=== PATIENT | male | born 1970 | race Caucasian/White ===

== ENCOUNTER 2024-02-12 06:25 | Day surgery (SDC) | payer BC, SELFPAY ==
[2024-02-12] VITALS (9 sets, daily range): BP systolic 106–131; BP diastolic 67–97; PULSE 59–71; RESP 16; TEMP 36.1–36.5; O2SAT 97–99; BMI 34.8
--- OUTSIDE RECORDS SUMMARY | 2024-02-12 06:42 | XMS RPT_ITS | CCD ---
Author Organization [facility] Care Team Providers Care Tax Audit Manager Name Role Phone DOUG SCHMITZ Admitting Unavailable DOUG SCHMITZ Attending Unavailable DOUG SCHMITZ Primary Care Unavailable DOUG SCHMITZ Admitting Unavailable DOUG SCHMITZ Attending Unavailable DOUG SCHMITZ Primary Care Unavailable Doug Schmitz MD Unavailable [facility] Unavailable [phone] Jamilah GREENE, Dr. Pate Unavailable Stacey SUPERVISOR CAPACITOR PROCESSING, Sherrie Unavailable Mane DYER, Machelle De Guzman Unavailable Damaris Mccormack MA Unavailable Unavailable Hitesh ADANN, Melvi Unavailable Unavailable Prosper DYER, Irais J Unavailable Esperanza MCBRIDE, Sulema Unavailable Unavailable Jodi GREENE, Mazin Daniels Unavailable [phone] Ritchie ADANN, Kenia Unavailable Unavailabl e Eun ADANN, Lacie Mcfarland Unavailable Unavaila ble Unavailable Unavailable Kamron ADANN, Efren Unavailable Unavailable [facility] Unavailable Medications Completed/Discontinued Medications Medication Drug Class(es) Dates Sig (Normalized) Sig (Original) amoxicillin 500 mg oral tablet (7 sources) Penicillin-class Antibacterial Start: 03-07-2022 End: 03-17-2022 take 1 tablet by mouth three times daily Amoxicillin 500 MG Oral Tablet ; 1 (one) Tablet tid for 10 days Quantity: 30 {Tablet} Refills: 0 Ordered: 07-Mar-2022 MD Doug Schmitz Start: 07-Mar-2022 End: 17-Mar-2022 Status: Inactive Azithromycin (7 sources) Macrolide Antimicrobial Start: 05-22-2023 End: 12-26-2023 Zithromax Z-Javier 250 mg tablet ; 2 (two) Tabs day one, then one daily for 4 days for 0 days Quantity: 1 {Packet} Refills: 0 Ordered: 26-Dec-2023 KamronTK Efren Start: 22-May-2023 End: 26-Dec-2023 Status: Inactive Start: 05-22-2023 End: 12-26-2023 Zithromax Z-Javier 250 mg table t ; 2 (two) Tabs day one, then one daily for 4 days for 0 days Quantity: 1 {Packet} Refills: 0 Ordered: 26-Dec-2023 Start: 22-May-2023 End: 26-Dec-2023 Status: Inactive Start: 05-22-2023 Zithromax Z-Pa k 250 mg tablet ; 2 (two) Tabs day one, then one daily for 4 days for 0 days Quantity: 1 {Packet} Refills: 0 Ordered: 22-May-2023 GOMEZ Gilliam Start: 22-May-2023 cephalexin 500 mg oral capsule (7 sources) Cephalosporin Antibacterial Start: 12-12-2016 End: 12-22-2016 take 1 capsule by mouth three times daily Cephalexin 500 MG Oral Capsule ; 1 Capsule three times daily for 10 days Quantity: 30 {Capsule} Refills: 0 Ordered: 05-Jan-2017 MD Doug Schmitz Start: 12-Dec-2016 End: 22-Dec-2016 Status: Inactive ibuprofen 600 mg oral tablet (7 sources) Nonsteroidal Anti-inflammatory Drug Start: 01-05-2017 End: 01-24-2019 take 1 tablet by mouth three times daily Ibuprofen 600 MG Oral Tablet ; 1 (one) Tablet tid for 0 days Quantity: 60 {Tablet} Refills: 0 Ordered: 24-Jan-2019 Start: 05-Jan-2017 End: 24-Jan-2019 Status: Inactive levoFLOXacin 500 mg oral tablet (7 sources) Quinolone Antimicrobial Start: 01-05-2017 End: 01-15-2017 take 1 tablet by mouth once daily Levaquin 500 MG Oral Tablet ; 1 Tab Daily for 10 days Quantity: 10 {Tablet} Refills: 0 Ordered: 01-Aug-2017 MD Doug Schmitz Start: 05-Jan-2017 End: 15-Jan-2017 Status: Inactive oxyCODONE hydrochloride 5 mg oral tablet (7 sources) Opioid Agonist Start: 08-06-2020 End: 01-05-2021 take 4 tablets by mouth every twenty-four hours as needed oxyCODONE HCl 5 MG Oral Tablet ; 1 (one) Tablet every four to six hours as needed for pain for 2 days Quantity: 6 {Tablet} Refills: 0 Ordered: 05-Jan-2021 TK Proctor Start: 06-Aug-2020 End: 05-Jan-2021 Status: Inactive Comments: Medication taken as needed. max 4 in 24 hr Comment on above: Medication taken as needed. max 4 in 24 hr triazolam 0.25 mg oral tablet (7 sources) Benzodiazepine Start: 06-02-2020 End: 01-05-2021 Triazolam 0.25 MG Oral Tablet ; 3 (three) Tablet 90 min pre-op for 0 days Quantity: 3 {Tablet} Refills: 0 Ordered: 05-Jan-2021 TK Proctor Start: 02-Jun-2020 End: 05-Jan-2021 Status: Inactive Problems Active Problems Problem Classification Problem Date Documented Da te Episodic/Chronic Abdominal hernia (14 sources) Umbilical hernia; Translations: [Umbilical hernia without obstruction or gangrene] 03-09-2014 Episodic Chronic obstructive pulmonary disease and bronchiectasis (14 sources) Bronchitis; Translations: [Bronchitis, not specified as acute or chronic] 01-05-2017 Episodic Contraceptive and procreative management (20 sources) Contraception status; Translations: [Encounter for sterilization] 05-22-2023 Episodic Other circulatory disease (20 sources) Elevated blood pressure; Translations: [Elevated blood-pressure reading, without diagnosis of hypertension] 08-03-2021 Episodic Other eye disorders (7 sources) Inflammatory disorder of the eye; Translations: [Other specified disorders of eye and adnexa] 01-24-2019 Episodic Other gastrointestinal disorders (4 sources) Stool DNA-based colorectal cancer screening positive; Translations: [Other fecal abnormalities] 01-25-2024 Episodic Other lower respiratory disease (2 sources) Apnea, not elsewhere classified; Translations: [Apnea, not elsewhere classified] Onset: 04-05-2021 Episodic Other lower respiratory disease (14 sources) Apnea; Translations: [Apnea, not elsewhere classified] 05-22-2023 Episodic Other screening for suspected conditions (not mental disorders or infectious disease) (12 sources) Patient encounter status; Translations: [Encounter for screening for malignant neoplasm of colon] 12-26-2023 Episodic Other upper respiratory infections (20 sources) Upper respiratory infection; Translations: [Acute upper respiratory infection, unspecified] 05-22-2023 Episodic Residual codes; unclassified (1 source) Obstructive sleep apnea (adult) (pediatric); Translations: [Obstructive sleep apnea (adult) (pediatric)] Onset: 04-05-2021 Chronic Residual codes; unclassified (20 sources) Obstructive sleep apnea syndrome; Translations: [Obstructive sleep apnea (adult) (pediatric)] 05-22-2023 Chronic Residual codes; unclassified (7 sources) Non-smoker; Translations: [Other specified health status] 05-22-2023 Episodic Residual codes; unclassified (14 sources) Insomnia; Translations: [Insomnia, unspecified] 08-11-2011 Episodic Unclassified (6 sources) Follow up for chronic condition - The patient is here for follow-up of hypertension. The patient has an active lifestyle but no regular exercise program. The patient's out of office blood pressure checks occur rarely. The patient states that headaches are rarely noted. Note for Chronic condition follow-up : reviewed by [facility] 12-26-2023 Viral infection (7 sources) Unspecified viral infection 04-11-2012 Episodic Past or Other Problems Problem Classification Problem Date Documented Da te Episodic/Chronic Chronic obstructive pulmonary disease and bronchiectasis (7 sources) Chronic obstructive pulmonary disease and bronchiectasis 01-05-2017 Unclassified (7 sources) Cold Symptoms - Symptoms include sneezing, sore throat, dry cough, productive cough, headache and facial pain, but do not include nasal congestion, runny nose, ear pain, wheezing, fever, chills or general malaise. The onset was gradual 2 week(s) ago. The symptoms occur constantly. The patient describes this as mild and worsening. Current treatment includes allergy medications, nasal corticosteroids and mucinex . Risk factors do not include child in daycare or smoking. The patient has been exposed to an individual with similar symptoms (Patient reports exposure to someone who had pneumonia recently). Note for Upper respiratory infection : Patient reports an itchy rash the last time he took amoxicillin. He reports that he has never had this rash before when taking amoxicillin. 05-22-2023 Unclassified (7 sources) Cold Symptoms - Symptoms include sore throat, general malaise and headache. The onset was gradual 4 day(s) ago. The patient describes this as worsening. Current treatment includes NSAIDs. The patient has not been exposed to an individual with a cough, an individual with an upper respiratory infection, an individual with similar symptoms, an individual with strep or secondhand smoke. Note for Upper respiratory infection : reviewed by [facility] 08-03-2021 Unclassified (7 sources) Insomnia - The patient sleeps 3 hours per night (pt is in bed 6-7 hrs but only really sleeps 2-3 comfortably). The patient typically requires 1 minute(s) to fall asleep. The patient is not currently being treated for this problem. Symptoms include difficulty staying asleep, unrefreshing sleep and daytime sleepiness. Onset was gradual 1 year(s) ago. The insomnia has been increasing. Associated symptoms include snoring. Note for Insomnia : says he does not breath at times while sleepinghas a terrible headache every am when he wakes uppt says sometimes his bp is high other times its okay- family hx of hypertension reviewed by [facility] 01-05-2021 Unclassified (7 sources) Vasectomy - Consent signed: yes. Has available transportation home: yes. Pre-Op med taken: yes. 08-06-2020 Unclassified (7 sources) Vasectomy evaluation - The patient is . He has 4 biological child(lilly) (ages 6 to 27). 06-02-2020 Unclassified (7 sources) Eye symptoms - The eye symptoms has been occurring for 2 months (been intermittent but has worsened in the past week). The course has been worsening. The eye symptoms involve both eyes (started with left eye, but now going to right eye). The symptoms are described as pain ( feels gritty ) and drainage (white pus). There has been associated blurred vision (the past couple of days). Note for Eye symptoms : has bumps on the lower eyelid that appeared the past couple of days reviewed by [facility] 01-24-2019 Unclassified (7 sources) Cold Symptoms - Symptoms include sneezing, nasal congestion, ear pain, sore throat, dry cough, wheezing, fever, chills and headache. The onset was sudden 2 week(s) ago. The symptoms occur constantly. The patient describes this as moderate in severity and worsening. The patient is not currently being treated for this problem. The patient has not been exposed to an individual with similar symptoms. Patient denies history of seasonal allergies. Note for Upper respiratory infection : reviewed by [facility] 12-12-2016 Unclassified (7 sources) Hernia - The onset of the hernia has been acute and has been occurring in a persistent pattern for 2 years. The course has been increasing. The hernia is described as being located in the umbilical area. There has been associated abdominal pain, while there has been no associated vomiting. Note for Hernia : reviewed by [facility] 03-06-2014 Unclassified (7 sources) Cold Symptoms - Symptoms include sore throat (x 3 weeks), dry cough, chills and headache. The onset was gradual 2 day(s) ago (except the ST, achiness, and headache which has been for about 3 weeks). The symptoms occur constantly. The patient describes this as moderate in severity and worsening. The patient has been exposed to an individual with similar symptoms (brother in law) and an individual with strep (kids 3 weeks ago). Patient denies history of seasonal allergies, recurrent sinusitis, recurrent strep pharyngitis, asthma, tonsillectomy or recurrent ear infections. 04-11-2012 Unclassified (7 sources) Well Adult, male - The patient feels well with minor complaints (Has excessive daytime sleepiness, snores, tired all the time and wondering about sleep apnea.ALso has some moles on back that he would like looked at and evaluated.). The current method of contraception is partner uses control. Patient has not had bone density screening. Patient has not had a cholesterol screening. There has been no glucose screening. Patient has not had a Zostavax vaccine. Patient has not had a Pneumovax vaccine. Patient has not received a recent influenza vaccine. Last Tetanus booster: unknown/unsure (he thinks it was about 5-6 years ago when doing some work on his house. He cut himself and was seen in ER and given update.). The patient has a balanced diet and takes no supplemental vitamins & iron. Patient exercises daily (Does a lot of walking/joggong with job.). Patient sleeps 3 hours per night. Note for Well Adult, male : reviewed by [facility] 07-28-2011 Results Test Name Value Interpretation Reference Range Facil ity Laboratory - Cytologyon 07-16 Pathologist Cyto stain Nom (Cvx/Vag) [ID] SEE NOTE [facility].; [place] [employer] No Panel Informationon 08-06 A DIAGNOSIS SEE NOTE Normal [facility].; [place] [employer]. A GROSS DESCRIPTION SEE NOTE Normal [facility].; [place] [employer] [facility] A SOURCE SEE NOTE Normal [facility].; [place] [employer] CLINICAL INFORMATION SEE NOTE Normal [facility].; [place] [employer] Laboratory - Microbiology an d Antimicrobial susceptibilityOrdered By: Kenia Dugan on 04-11-2012 FLUAV Ag IA Ql (Throat) Negative [facility]; [place] [employer] Laboratory - Microbiology an d Antimicrobial susceptibilityon 04-11-2012 S. pyogenes Ag EIA Ql (Throat) Negative Normal [facility]; [facility] No Panel Informationon 04-11 MONOSPOT TEST (IN HOUSE) Negative Normal [facility]; [facility] Laboratory - Chemistry and C hemistry - challengeon 08-11-2011 Albumin [Mass/Vol] 4.7 g/dL Normal 3.6 - 5.1 g/dL [facility].; [place] [employer]. Albumin/Globulin [Mass ratio] 1.9 {ratio} Normal 1.0 - 2.1 [facility]; [place] [employer]. ALP [Catalytic activity/Vol] 95 U/L Normal 40 - 115 U/L [facility].; [place] [employer]. ALT [Catalytic activity/Vol] 20 U/L Normal 9 - 60 U/L [facility].; [place] [employer]. AST [Catalytic activity/Vol] 14 U/L Normal 10 - 40 U/L [place] [employer] [facility].; [employer]. Bilirubin [Mass/Vol] 0.4 mg/dL Normal 0.2 - 1.2 mg/dL [facility].; [employer]. Calcium [Mass/Vol] 10.1 mg/dL Normal 8.6 - 10. 3 mg/dL [place] [employer] [facility].; [employer]. Chloride [Moles/Vol] 107 mmol/L Normal 98 - 110 mmol/L [facility].; [facility], [facility]. Cholesterol [Mass/Vol] 243 mg/dL Abnormal 125 - 200 mg/ dL [facility].; [facility], [facility]. Cholesterol in HDL [Mass/Vol] 33 mg/dL Abnormal [facility].; [facility], [facility] Cholesterol in LDL [Mass/Vol] 180 mg/dL Abnormal [facility].; [facility], [facility]. Cholesterol non HDL [Mass/Vol] 209 mg/dL Normal [facility]; [facility], [facility] Cholesterol.total/Cholester ol in HDL [Mass ratio] 7.4 {ratio} Abnormal [facility]; [facility], [facility] CO2 [Moles/Vol] 25 mmol/L Normal 21 - 33 mmol/L [facility].; [facility], [facility] Creatinine [Mass/Vol] 1.10 mg/dL Normal 0.60 - 1.35 mg/dL [facility].; [facility], [facility]. GFR/1.73 sq M.predicted among blacks MDRD (S/P/Bld) [Vol rate/Area] 96 {ML/MIN/1.73M2 } Normal [facility], [facility].; [facility], [facility]. GFR/1.73 sq M.predicted MDRD (S/P/Bld) [Vol rate/Area] 83 {ML/MIN/1.73M2 } Normal [facility], [facility].; [facility], [facility] Globulin (S) [Mass/Vol] 2.5 g/dL Normal 2.1 - 3.7 g/ dL [facility], [facility].; [facility], [facility]. Glucose [Mass/Vol] 99 mg/dL Normal 65 - 99 mg/dL [facility]; [facility], [facility] Potassium [Moles/Vol] 4.4 mmol/L Normal 3.5 - 5.3 mmol/L [facility], [facility].; [facility], [facility] Protein [Mass/Vol] 7.2 g/dL Normal 6.2 - 8.3 g/dL [facility].; [facility], [facility] Sodium [Moles/Vol] 141 mmol/L Normal 135 - 146 mmol/L [facility]; [facility], [facility] Triglyceride [Mass/Vol] 150 mg/dL Abnormal [facility].; [facility], [facility] TSH Qn 1.70 m[IU]/L Normal 0.40 - 4.50 {mIU/L} [facility]; [facility], [facility] Urea nitrogen [Mass/Vol] 20 mg/dL Normal 7 - 25 mg/d L [facility]; [facility], [facility] Urea nitrogen/Creatinine [Mass ratio] 18.2 mg/mg Normal 6 - 22 [facility]; [facility], [facility] Laboratory - Hematology and Cell countson 08-11-2011 Basophils (Bld) [#/Vol] 50 {Cells}/uL Normal 0 - 200 {Cells}/uL [facility].; [facility] Basophils/100 WBC (Bld) 1 % Normal 0 - 2 % [facility].; [facility], [facility] Eosinophils (Bld) [#/Vol] 380 {Cells}/uL Normal 15 - 500 {Cells}/uL [facility].; [facility], [facility] Eosinophils/100 WBC (Bld) 6 % Normal 0 - 8 % [facility].; [place] [employer] [facility], [facility] Erythrocyte distribution width (RBC) [Ratio] 13.6 % Normal 11.0 - 15.0 % [facility].; [place] [employer], [facility] Hematocrit (Bld) [Volume fraction] 44.6 % Normal 38.5 - 50.0 % [facility].; [facility], [facility] Hemoglobin (Bld) [Mass/Vol] 15.1 g/dL Normal 13.2 - 17.1 g/dL [facility].; [facility], [facility] Lymphocytes (Bld) [#/Vol] 2150 {Cells}/uL Normal 850 - 3900 {Cells}/uL [facility].; [facility]. Lymphocytes/100 WBC (Bld) 36 % Normal 15 - 49 % [facility].; [facility]. MCH (RBC) [Entitic mass] 30.5 pg Normal 27.0 - 33.0 PG [facility].; [facility], [facility]. MCHC (RBC) [Mass/Vol] 33.7 g/dL Normal 32.0 - 36.0 g/dL [facility].; [place] [employer] [facility]. MCV (RBC) [Entitic vol] 90.6 fL Normal 80.0 - 100.0 fL [facility].; [facility], [facility]. Monocytes (Bld) [#/Vol] 170 {Cells}/uL Abnormal 20 0 - 950 {Cells}/uL [facility].; [place] [employer] [facility], [facility]. Monocytes/100 WBC (Bld) 3 % Normal 0 - 13 % [facility].; [place] [employer] [facility]. Neutrophils (Bld) [#/Vol] 3230 {Cells}/uL Normal 1500 - 7800 {Cells}/uL [facility].; [place] [employer] [facility]. Neutrophils/100 WBC (Bld) 54 % Normal 38 - 80 % [facility].; [place] [employer] [facility]. Platelets (Bld) [#/Vol] 259 10*3/uL Normal 140 - 400 10*3/uL [facility].; [place] [employer], [employer]. RBC (Bld) [#/Vol] 4.93 10*6/uL Normal 4.20 - 5.8 0 10*6/uL [facility].; [place] [employer]. WBC (Bld) [#/Vol] 6.0 10*3/uL Normal 3.8 - 10.8 10*3/uL [place] [employer].; [employer]. Laboratory - Chemistry and C hemistry - challengeon 07-28-2011 Bilirubin Ql (U) Negative Normal [facility] [employer], [employer]. Ketones Ql (U) Negative Normal [facility].; [place] [employer], [employer]. pH (U) 7.0 [pH] Normal 4.6 - 8.0 [employer] Specific gravity (U) [Rel density] 1.025 Normal 1.001 - 1.025 [employer] [employer] Laboratory - Hematology and Cell countson 07-28-2011 Hemoglobin Ql (U) Negative Normal [employer] [employer]. Laboratory - Specimen inform ationon 07-28-2011 Appearance (U) Clear Normal [employer]. Color (U) Yellow Normal [employer] [employer] Laboratory - Urinalysison Glucose Test strip (U) [Mass/Vol] Negative Normal [employer] [employer]. Leukocyte esterase Test strip Ql (U) Negative Normal [employer].; [employer]. Nitrite Ql (U) Negative Normal [place] [employer]. Protein Ql (U) Trace Normal [employer].; [employer]. No Panel Informationon 07-27 UA - UROBILINOGEN 1.0 mg/dL Normal [employer] [employer]. Vital Signs Date Time Vital Sign Value Performing Clinician Facility 12-26-2023 06:57-0400 Body weight 107.96 kg Doug Schmitz MD Work Phone: [employer]; [employer]. 12-26-2023 06:57-0400 Diastolic blood pressure 84 mm[Hg] Doug Schmitz MD Work Phone: [employer].; [employer]. Comment on above: Patient Position: Sitting; Cuff Location : Left Arm; Cuff Size: Standard 12-26-2023 06:57-0400 Heart rate 67 /min Doug Schmitz MD Work Phone: [employer]; [employer]. Comment on above: Pattern: Regular 12-26-2023 06:57-0400 Systolic blood pressure 142 mm[Hg] Doug Schmitz MD Work Phone: [place] [employer].; [employer]. Comment on above: Patient Position: Sitting; Cuff Location : Left Arm; Cuff Size: Standard 05-22-2023 14:34-0500 Body height 175.26 cm Damaris Mccormack MA [facility] [employer].; [employer]. 05-22-2023 14:34-0500 Body mass index (BMI) [Ratio] 34.77 kg/m2 Damaris Mccormack MA [place] [employer].; [employer]. 05-22-2023 14:34-0500 Body surface area Derived from formula 2.21 m2 Damaris Mccormack MA [employer].; [employer] 05-22-2023 14:34-0500 Body temperature 98.1 [degF] Damaris Mccormack MA [employer].; [employer] 05-22-2023 14:34-0500 Body weight 106.79 kg Damaris Mccormack MA [employer].; [employer]. 05-22-2023 14:34-0500 Diastolic blood pressure 104 mm[Hg] Damaris Mccormack MA [employer]. Comment on above: Patient Position: Sitting; Cuff Location : Left Arm; Cuff Size: Standard 05-22-2023 14:34-0500 Heart rate 93 /min Damaris Mccormack MA [employer]. Comment on above: Pattern: Regular 05-22-2023 14:34-0500 Inhaled oxygen concentration 20 % Damaris Mccormack MA [employer]. Comment on above: Room air 05-22-2023 14:34-0500 Inhaled oxygen concentration 21 % Damaris Mccormack MA [employer]. Comment on above: Room air 05-22-2023 14:34-0500 SaO2% (BldA) [Mass fraction] 96 % Damaris Mccormack MA [employer]. 05-22-2023 14:34-0500 Systolic blood pressure 163 mm[Hg] Damaris Mccormack MA [facility] [employer]. Comment on above: Patient Position: Sitting; Cuff Location : Left Arm; Cuff Size: Standard 08-03-2021 13:52-0400 Body height 175.26 cm [facility] Mata [facility] [employer]. 08-03-2021 13:52-0400 Body mass index (BMI) [Ratio] 32.64 kg/m2 Sulema Mata [facility] [employer]. 08-03-2021 13:52-0400 Body surface area Derived from formula 2.16 m2 Sulema Mata [facility].; [employer]. 08-03-2021 13:52-0400 Body temperature 99.3 [degF] Sulema Mata [facility] [employer] [facility] [employer]. Comment on above: Method: Tympanic 08-03-2021 13:52-0400 Body weight 100.25 kg Sulema Mata [facility] [employer] [facility].; [employer]. 08-03-2021 13:52-0400 Diastolic blood pressure 103 mm[Hg] Sulema Tineor [facility] [employer] [facility].; [employer]. Comment on above: Patient Position: Sitting; Cuff Location : Left Arm; Cuff Size: Standard 08-03-2021 13:52-0400 Heart rate 105 /min Sulema Mata [facility] [employer] [facility] [employer]. Comment on above: Pattern: Regular 08-03-2021 13:52-0400 Systolic blood pressure 154 mm[Hg] Sulema Tineor [facility] [employer]. Comment on above: Patient Position: Sitting; Cuff Location : Left Arm; Cuff Size: Standard 01-05-2021 08:00-0400 Diastolic blood pressure 90 mm[Hg] Doug Schmitz MD Work Phone: [place] [employer]. Comment on above: Patient Position: Sitting; Cuff Location : Left Arm; Cuff Size: Standard 01-05-2021 08:00-0400 Systolic blood pressure 144 mm[Hg] Doug Schmitz MD Work Phone: [facility], [facility].; [place] [employer] [facility]. Comment on above: Patient Position: Sitting; Cuff Location : Left Arm; Cuff Size: Standard 01-05-2021 07:48-0400 Body height 175.26 cm Melvi Proctor LPN [facility], [facility].; [place] [employer] [facility], [facility]. 01-05-2021 07:48-0400 Body mass index (BMI) [Ratio] 31.6 kg/m2 Melvi Proctor LPN [facility], [facility].; [place] [employer] [facility], [facility]. 01-05-2021 07:48-0400 Body surface area Derived from formula 2.13 m2 Melvi Proctor LPN [facility], [facility].; [place] [employer] [facility], [facility]. 01-05-2021 07:48-0400 Body weight 97.07 kg Melvi Proctor LPN [facility], [facility].; [place] [employer] [facility], [facility]. 01-05-2021 07:48-0400 Diastolic blood pressure 102 mm[Hg] Melvi Proctor LPN [facility], [facility].; [employer]. Comment on above: Patient Position: Sitting; Cuff Location : Left Arm; Cuff Size: Standard 01-05-2021 07:48-0400 Heart rate 69 /min Melvi Proctor LPN [facility], [facility].; [employer]. Comment on above: Pattern: Regular 01-05-2021 07:48-0400 Systolic blood pressure 145 mm[Hg] Melvi Proctor LPN [facility], [facility].; [employer]. Comment on above: Patient Position: Sitting; Cuff Location : Left Arm; Cuff Size: Standard 08-06-2020 13:16-0400 Body height 175.26 cm Sherrie Ibarra LPN Work Phone: [place] [employer] [facility], [facility].; [place] [employer]. 08-06-2020 13:16-0400 Body mass index (BMI) [Ratio] 30.13 kg/m2 Sherrie Ibarra LPN Work Phone: [place] [employer] [facility].; [employer] 08-06-2020 13:16-0400 Body surface area Derived from formula 2.08 m2 Sherrie Stacey SUPERVISOR [employer]ESSING Work Phone: [employer] 08-06-2020 13:16-0400 Body weight 92.53 kg Sherrie Stacey SUPERVISOR [employer]AC[employer]ESSING Work Phone: [employer] 08-06-2020 13:16-0400 Diastolic blood pressure 95 mm[Hg] Sherrie Stacey SUPERVISOR [employer]AC[employer]ESSING Work Phone: [employer]. Comment on above: Patient Position: Sitting; Cuff Location : Left Arm; Cuff Size: Standard 08-06-2020 13:16-0400 Heart rate 80 /min Sherrie Stacey SUPER[employer]ING Work Phone: [employer]. Comment on above: Pattern: Regular 08-06-2020 13:16-0400 Systolic blood pressure 136 mm[Hg] Sherrie Stacey SUPERVISOR [employer]ING Work Phone: [employer]. Comment on above: Patient Position: Sitting; Cuff Location : Left Arm; Cuff Size: Standard 06-02-2020 16:23-0500 Body height 175.26 cm Sherrie Stacey SUPERVISOR [employer]AC[employer]ESSING Work Phone: [employer]. 06-02-2020 16:23-0500 Body mass index (BMI) [Ratio] 30.13 kg/m2 Sherrie Stacey SUPERVISOR [employer]ING Work Phone: [employer] 06-02-2020 16:23-0500 Body surface area Derived from formula 2.08 m2 Sherrie Stacey SUPERVISOR [employer]AC[employer]ESSING Work Phone: [employer]. 06-02-2020 16:23-0500 Body weight 92.53 kg Sherrie Stacey SUPERVISOR [employer]AC[employer]ESSING Work Phone: [employer].; [employer]. 06-02-2020 16:23-0500 Diastolic blood pressure 111 mm[Hg] Sherrie Ibarra LPN Work Phone: [employer].; [employer]. Comment on above: Patient Position: Sitting; Cuff Location : Left Arm; Cuff Size: Standard 06-02-2020 16:23-0500 Heart rate 80 /min Sherrie Ibarra LPN Work Phone: [employer].; [employer]. Comment on above: Pattern: Regular 06-02-2020 16:23-0500 Systolic blood pressure 161 mm[Hg] Sherrie Ibarra LPN Work Phone: [employer].; [employer]. Comment on above: Patient Position: Sitting; Cuff Location : Left Arm; Cuff Size: Standard 01-24-2019 11:01-0400 Body height 175.26 cm Doug Schmitz MD Work Phone: [employer].; [employer]. 01-24-2019 11:01-0400 Body mass index (BMI) [Ratio] 33.82 kg/m2 Doug Schmitz MD Work Phone: [employer].; [employer]. 01-24-2019 11:01-0400 Body surface area Derived from formula 2.19 m2 Doug Schmitz MD Work Phone: [employer].; [employer]. 01-24-2019 11:01-0400 Body temperature 98.1 [degF] Doug Schmitz MD Work Phone: [employer].; [employer]. Comment on above: Method: Tympanic 01-24-2019 11:01-0400 Body weight 103.87 kg Doug Schmitz MD Work Phone: [employer].; [employer]. 01-24-2019 11:01-0400 Diastolic blood pressure 102 mm[Hg] Doug Schmitz MD Work Phone: [employer].; [employer]. Comment on above: Patient Position: Sitting; Cuff Location : Left Arm; Cuff Size: Standard 01-24-2019 11:01-0400 Heart rate 82 /min Doug Schmitz MD Work Phone: [employer].; [employer]. Comment on above: Pattern: Regular 01-24-2019 11:01-0400 Systolic blood pressure 167 mm[Hg] Doug Schmitz MD Work Phone: [employer].; [employer]. Comment on above: Patient Position: Sitting; Cuff Location : Left Arm; Cuff Size: Standard 01-05-2017 07:00-0400 Body temperature 97.1 [degF] Doug Schmitz MD Work Phone: [employer].; [employer]. 01-05-2017 07:00-0400 Body weight 97.98 kg Doug Schmitz MD Work Phone: [employer].; [employer]. 01-05-2017 07:00-0400 Diastolic blood pressure 79 mm[Hg] Doug Schmitz MD Work Phone: [employer].; [employer]. Comment on above: Patient Position: Sitting; Cuff Location : Left Arm; Cuff Size: Standard 01-05-2017 07:00-0400 Heart rate 86 /min Doug Schmitz MD Work Phone: [employer].; [employer]. Comment on above: Pattern: Regular 01-05-2017 07:00-0400 Inhaled oxygen concentration 20 % Doug Schmitz MD Work Phone: [employer].; [employer]. Comment on above: Room air 01-05-2017 07:00-0400 Inhaled oxygen concentration 21 % Doug Schmitz MD Work Phone: [employer].; [employer]. Comment on above: Room air 01-05-2017 07:00-0400 SaO2% (BldA) [Mass fraction] 97 % Doug Schmitz MD Work Phone: [employer].; [employer]. 01-05-2017 07:00-0400 Systolic blood pressure 154 mm[Hg] Doug Schmitz MD Work Phone: [employer].; [employer]. Comment on above: Patient Position: Sitting; Cuff Location : Left Arm; Cuff Size: Standard 12-12-2016 11:37-0400 Body temperature 97.6 [degF] Doug Schmitz MD Work Phone: [employer].; [employer]. 12-12-2016 11:37-0400 Body weight 96.62 kg Doug Schmitz MD Work Phone: [employer].; [employer]. 12-12-2016 11:37-0400 Diastolic blood pressure 92 mm[Hg] Doug Schmitz MD Work Phone: [employer].; [employer]. Comment on above: Patient Position: Sitting; Cuff Location : Left Arm; Cuff Size: Standard 12-12-2016 11:37-0400 Heart rate 79 /min Doug Schmitz MD Work Phone: [employer]; [employer]. Comment on above: Pattern: Regular 12-12-2016 11:37-0400 Inhaled oxygen concentration 20 % Doug Schmitz MD Work Phone: [employer]; [employer]. Comment on above: Room air 12-12-2016 11:37-0400 Inhaled oxygen concentration 21 % Doug Schmitz MD Work Phone: [employer].; [employer]. Comment on above: Room air 12-12-2016 11:37-0400 SaO2% (BldA) [Mass fraction] 98 % Doug Schmitz MD Work Phone: [employer].; [employer]. 12-12-2016 11:37-0400 Systolic blood pressure 146 mm[Hg] Duog Schmitz MD Work Phone: [employer]; [employer]. Comment on above: Patient Position: Sitting; Cuff Location : Left Arm; Cuff Size: Standard 03-06-2014 09:28-0500 Body height 175.26 cm Doug Schmitz MD Work Phone: [employer]. 03-06-2014 09:28-0500 Body mass index (BMI) [Ratio] 30.27 kg/m2 Doug Schmitz MD Work Phone: [employer].; [employer]. 03-06-2014 09:28-0500 Body surface area Derived from formula 2.09 m2 Doug Schmitz MD Work Phone: [employer].; [employer]. 03-06-2014 09:28-0500 Body weight 92.99 kg Doug Schmitz MD Work Phone: [employer].; [employer]. 03-06-2014 09:28-0500 Diastolic blood pressure 88 mm[Hg] Doug Schmitz MD Work Phone: [employer].; [employer]. Comment on above: Patient Position: Sitting; Cuff Location : Left Arm; Cuff Size: Large 03-06-2014 09:28-0500 Heart rate 90 /min Doug Schmitz MD Work Phone: [employer].; [employer]. Comment on above: Pattern: Regular 03-06-2014 09:28-0500 Systolic blood pressure 151 mm[Hg] Doug Schmitz MD Work Phone: [employer].; [employer]. Comment on above: Patient Position: Sitting; Cuff Location : Left Arm; Cuff Size: Large 04-11-2012 11:00-0500 Body height 175.26 cm Kenia Dugan LPN [employer]. 04-11-2012 11:00-0500 Body mass index (BMI) [Ratio] 30.92 kg/m2 Kenia Dugan LPN [employer]. 04-11-2012 11:00-0500 Body surface area Derived from formula 2.11 m2 Kenia Dugan TK [facility], [facility].; [place] [employer]. 04-11-2012 11:00-0500 Body temperature 100.7 [degF] Kenia Dugan SUPERVISOR CAPACITOR PROCESSING [facility] [employer]. Comment on above: Method: Tympanic 04-11-2012 11:00-0500 Body weight 94.97 kg Kenia Dugan TK [facility], [facility].; [employer]. 04-11-2012 11:00-0500 Diastolic blood pressure 110 mm[Hg] Kenia Dugan SUPERVISOR CAPACITOR PROCESSING[facility] [employer] [facility].; [employer]. Comment on above: Patient Position: Sitting; Cuff Location : Left Arm; Cuff Size: Standard 04-11-2012 11:00-0500 Heart rate 114 /min Kenia Gorealfonso [facility].; [employer]. Comment on above: Pattern: Regular 04-11-2012 11:00-0500 Inhaled oxygen concentration 20 % Kenia Gorealfonso [facility] [employer] [facility], [employer].; [employer]. Comment on above: Room air 04-11-2012 11:00-0500 Inhaled oxygen concentration 21 % Kenia Goreyousufadwoa TK [place] [employer] [facility].; [employer] Comment on above: Room air 04-11-2012 11:00-0500 SaO2% (BldA) [Mass fraction] 98 % Kenia Dugan SUPERVISOR CAPACITOR PROCESSING [place] [employer] [facility].; [employer] 04-11-2012 11:00-0500 Systolic blood pressure 148 mm[Hg] Kenia Dugan [facility] [employer]. Comment on above: Patient Position: Sitting; Cuff Location : Left Arm; Cuff Size: Standard 07-28-2011 13:50-0400 Body height 175.26 cm Doug Schmitz MD Work Phone: [place] [employer] [facility].; [employer]. 07-28-2011 13:50-0400 Body mass index (BMI) [Ratio] 28.65 kg/m2 Doug Schmitz MD Work Phone: [employer]; [employer]. 07-28-2011 13:50-0400 Body surface area Derived from formula 2.04 m2 Doug Schmitz MD Work Phone: [employer].; [employer]. 07-28-2011 13:50-0400 Body weight 88 kg Doug Schmitz MD Work Phone: [employer].; [employer]. 07-28-2011 13:50-0400 Diastolic blood pressure 80 mm[Hg] Doug Schmitz MD Work Phone: [employer].; [employer]. Comment on above: Patient Position: Sitting; Cuff Location : Left Arm; Cuff Size: Standard 07-28-2011 13:50-0400 Heart rate 86 /min Doug Schmitz MD Work Phone: [employer]; [employer]. Comment on above: Pattern: Regular 07-28-2011 13:50-0400 Systolic blood pressure 120 mm[Hg] Doug Schmitz MD Work Phone: [employer]; [employer]. Comment on above: Patient Position: Sitting; Cuff Location : Left Arm; Cuff Size: Standard Encounters Encounter Date Encounter Type Care Provider Facility Start: 01-25-2024 End: 01-25-2024 Orders Doug Schmitz MD Work Phone: [employer] Start: 12-26-2023 Follow-up encounter Doug mcfarland MD Work Phone: [employer] Start: 12-26-2023 End: 12-26-2023 Office outpatient visit 15 minutes Doug Schmitz MD Work Phone: [employer] Start: 05-22-2023 End: 05-22-2023 Office outpatient visit 15 minutes Doug Schmitz MD Work Phone: [employer]. Start: 03-07-2022 End: 03-07-2022 Office outpatient visit 15 minutes Doug Schmitz MD Work Phone: [employer]. Start: 08-03-2021 End: 08-03-2021 Office outpatient visit 15 minutes Doug Schmitz MD Work Phone: [employer]. Start: 04-05-2021 End: 04-05-2021 ambulatory [facility] Start: 04-04-2021 End: 04-04-2021 Orders Doug Schmitz MD Work Phone: [employer]. Start: 03-17-2021 End: 03-17-2021 ambulatory [facility] Start: 01-05-2021 End: 01-05-2021 Office outpatient visit 15 minutes Doug Schmitz MD Work Phone: [employer]. Start: 08-06-2020 End: 08-06-2020 Procedure Doug Schmitz MD Work Phone: [employer]. Start: 06-02-2020 End: 06-02-2020 Patient encounter procedure Doug Schmitz MD Work Phone: [employer]. Start: 01-24-2019 End: 01-24-2019 Office outpatient visit 25 minutes Doug Schmitz MD Work Phone: [employer]. Start: 01-05-2017 End: 01-05-2017 Office outpatient visit 15 minutes Doug Schmitz MD Work Phone: [employer]. Start: 12-12-2016 End: 12-12-2016 Office outpatient visit 15 minutes Doug Schmitz MD Work Phone: [employer]. Start: 03-09-2014 End: 03-09-2014 Orders Doug Schmitz MD Work Phone: [employer]. Start: 03-06-2014 End: 03-06-2014 Office outpatient visit 15 minutes Doug Schmitz MD Work Phone: [employer]. Start: 04-11-2012 End: 04-11-2012 Patient encounter procedure Doug Schmitz MD Work Phone: [employer] Start: 08-11-2011 End: 08-11-2011 Orders Doug Schmitz MD Work Phone: [employer] Start: 07-28-2011 End: 07-28-2011 Patient encounter procedure Doug Schmitz MD Work Phone: [employer] Start: 07-28-2011 End: 07-28-2011 Routine general medical examination at a [facility] facility Doug Schmitz MD Work Phone: [employer]; [employer] Procedures Date Procedure Procedure Detail Performing Clinician Start: 12-26-2023 End: 01-25-2024 Oncology colorectal screening jaydon 10 dna luisrs Doug Schmitz MD Work Phone: Start: 04-04-2021 End: 04-13-2021 Polysom 6/>yrs sleep w/cpap 4/> addl vineet attclarice Schmitz MD Work Phone: Start: 01-05-2021 End: 04-04-2021 Polysom 6/>yrs sleep 4/> addl vineet all Schmitz MD Work Phone: Start: 08-06-2020 End: 08-06-2020 Vasectomy uni/bi spx w/postop semen exams Mazin Zapata MD Work Phone: Start: 06-02-2020 End: 06-02-2020 No Known Health Maintenance History 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 Payers Date Payer Category Payer Unknown [id number] 1970 Unknown [id number] Unknown [id number] Unknown ANTHEM Social History Date Type Detail Facility Alcohol Use: Alcohol Use: ; O ccasional alcohol use. [place] [employer] Caffeine Use Caffeine Use [facility] [employer]; [employer] Exercise History: Exercise History: ; Mod erate. [employer]; [employer] Marital status: Marital status: ; . [employer].; [employer] Tobacco Use: Tobacco Use: ; Never smoker. [employer]; [employer] Male [facility] [employer]; [employer] Work Phone: Moderate [place] [employer]; [employer] Work Phone: Occasional alcohol use [facility] [employer]; [employer] Work Phone: Never smoked tobacco [place] [employer]. Work Phone: [facility] [employer]; [employer] Work Phone: Clinical Note 08-06-2020 Note Date & Type Note Facility 08-06-2020 Note [employer]. ; [employer]. A PROCEDURESEE NOTE(Normal) Clinical Note 08-06-2020 Note Date & Type Note Facility 08-06-2020 Note [facility]. ; [employer]. A PROCEDURESEE NOTE(Normal) Clinical Note 08-06-2020 Note Date & Type Note Facility 08-06-2020 Note [employer]. ; [employer]. A PROCEDURESEE NOTE(Normal) Clinical Note 08-06-2020 Note Date & Type Note Facility 08-06-2020 Note [employer]. ; [employer]. A PROCEDURESEE NOTE(Normal) Clinical Note 08-06-2020 Note Date & Type Note Facility 08-06-2020 [facility]. ; [facility]. A PROCEDURESEE NOTE(Normal) Clinical Note 08-06-2020 Note Date & Type Note Facility 08-06-2020 Note [facility]. ; [facility]. A PROCEDURESEE NOTE(Normal) Clinical Note 08-06-2020 Note Date & Type Note Facility 08-06-2020 Note [facility]. ; [facility]. A PROCEDURESEE NOTE(Normal) Summary Purpose Family History Cancer Status:Active Comments:Materna l Grandmother. type unknown Coronary Artery Disease Status:Active Comments :Father. Diabetes Mellitus Type II Status:Active Commen ts:Negative Family History Of. Hypertension Status:Active Comments:Father. Cancer Status:Active Comments:Materna l Grandmother. type unknown Coronary Artery Disease Status:Active Comments :Father. Diabetes Mellitus Type II Status:Active Commen ts:Negative Family History Of. Hypertension Status:Active Comments:Father. Cancer Status:Active Comments:Materna l Grandmother. type unknown Coronary Artery Disease Status:Active Comments :Father. Diabetes Mellitus Type II Status:Active Commen ts:Negative Family History Of. Hypertension Status:Active Comments:Father. Cancer Status:Active Comments:Materna l Grandmother. type unknown Coronary Artery Disease Status:Active Comments :Father. Diabetes Mellitus Type II Status:Active Commen ts:Negative Family History Of. Hypertension Status:Active Comments:Father. Cancer Status:Active Comments:Materna l Grandmother. type unknown Coronary Artery Disease Status:Active Comments :Father. Diabetes Mellitus Type II Status:Active Commen ts:Negative Family History Of. Hypertension Status:Active Comments:Father. Cancer Status:Active Comments:Materna l Grandmother. type unknown Coronary Artery Disease Status:Active Comments :Father. Diabetes Mellitus Type II Status:Active Commen ts:Negative Family History Of. Hypertension Status:Active Comments:Father. Cancer Status:Active Comments:Materna l Grandmother. type unknown Coronary Artery Disease Status:Active Comments :Father. Diabetes Mellitus Type II Status:Active Commen ts:Negative Family History Of. Hypertension Status:Active Comments:Father. Advance Directives No Advanced Directives Records Found Additional Source Comments (unrecognized sect ion and content) No Status Records Found INFORMATION SOURCE (unrecogn ized section and content) DATE CREATED AUTHOR 06/28/2021 [facility] FOR RECORDS PERTAINING TO PATIENTS WHO ARE OR HAVE BEEN ENROLLED IN A CHEMICAL DEPENDENCY/SUBSTANCEABUSE PROGRAM, SOME INFORMATION MAY BE OMITTED. This clinical summary was aggregated from multiple sources. Caution should be exercised in using it in the provision of clinical care. This summary normalizes information from multiple sources, and as a consequence, information in this document may materially change the coding, format and clinical context of patient data. In addition, data may be omitted in some cases. CLINICAL DECISIONS SHOULD BE BASED ON THE PRIMARY CLINICAL RECORDS. [facility] [employer] provides no warranty or guarantee of the accuracy or completeness of information in this document.
--- NOTE | 2024-02-12 07:11 | PCM.PRE.AN2 ---
ASA Classification* ASA Classification ASA Classification: 2 Assessment & Plan Anesthesia* Anesthesia Assessment Anesthesia Assessment: Discussed sedation and/or anesthesia options, risks, benefits, and alternatives with patient/parents/legal guardian/POA. Questions invited. The patient/parents/legal guardian/POA seems to understand and agrees to proceed with anesthesia plan. Reviewed the physical assessment, medical history, allergy history and patient home medications list prior to surgery/procedure/anesthetic and documented any changes. Performed airway and anesthesia risk assessments. 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 When Was Last Pacemaker Check QUESTION #4 FULL TEXT: You/Your Family Experience fever (hyperthermia) with Anesthesia Last Oral Intake Last Oral intake: Last Oral Intake NPO since Meds taken in AM with sips of water? Meds patient instructed to take am of surgery PONV PONV - decontamination worker: PONV - decontamination worker Female No 02/08/24 15:23 HX of Motion Sickness No 02/08/24 15:23 HX of N/V After Surgery No 02/08/24 15:23 Non-Smoker Yes 02/08/24 15:23 Duration of Surgery greater No 02/08/24 15:23 than 60 minutes Number of Risk Factors 1 02/08/24 15:23 PONV Score Low Risk 02/08/24 15:23 Height & Weight Height & Weight: Anesthesia: Height & Weight Height 5 ft 9 in 02/12/24 06:41 Weight: 107 kg 02/12/24 06:41 Body Mass Index (BMI) 34.8 02/12/24 06:41 Respiratory Assessment Respiratory Assessment - decontamination worker: Respiratory Tract Infection Hx - decontamination worker Hx Respiratory Tract Infection No 02/08/24 15:23 STOP Sleep Apnea STOP Sleep Apnea - decontamination worker: STOP Sleep Apnea - decontamination worker Hx Hypertension No 02/08/24 15:23 Hx Sleep Apnea Yes 02/08/24 15:23 CPAP Yes 02/08/24 15:23 BIPAP No 02/08/24 15:23 Do you snore loudly (louder No 02/08/24 15:23 than talking or can be heard Do you often feel tired/ No 02/08/24 15:23 fatigued/ sleepy during daytime? Has anyone observed you stop No 02/08/24 15:23 breathing during sleep? STOP Results Positive 02/08/24 15:23 QUESTION #5 FULL TEXT : Do you snore loudly (louder than talking or can be heard through closed doors)? 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 Specify any problems Hx of Preganancy in last 3 N/A 02/08/24 15:23 Months Nurse Filling Out Transfusion DSCHRIBER 02/08/24 15:23 & Questions: Date: 02/08/24 02/08/24 15:23 Time: 15:24 02/08/24 15:23 Patient unable to answer at this time (ie. confused, unrespo /Reproduction History /Reproductive History - decontamination worker: /Reproductive Hx- decontamination worker Hx Now No 02/08/24 15:23 Gestational Age (in weeks): EDC: Hx Hx Para Hx Section SAB No 02/08/24 15:23 Active Medications Active Medications: Current Medications Generic Name Dose Route Start Last Admin Trade Name Freq PRN Reason Stop Dose Admin Sodium Chloride 10 - 40 ml 02/12/24 06:32 0.9% Saline Lock 10 Ml Syringe IV UD PRN SALINE FLUSH PFSH Medical History Alcohol use CPAP (continuous positive airway pressure) dependence Non-smoker Positive colorectal cancer screening using Cologuard test Home Medications ?Medication ?Instructions ?Recorded ?Last Taken ?Type NK 01/30/24 Unknown History Allergy/AdvReac Type Severity Reaction Status Date / Time No Known Allergies Allergy Verified 02/12/24 06:40 Family History Uncle Colon cancer Surgical History Hx of vasectomy H/O umbilical hernia repair Social History Smoking Status: Never smoker alcohol intake: never substance use type: does not use Review of Systems (Anesthesia) ROS Narrative System reviewed and no additional complaints, except as documented.
--- NOTE | 2024-02-12 07:13 | HP.PCM_ITS ---
HPI - General General Date of Admission: 02/12/24 Date of Service: 02/12/24 Chief Complaint: Patient is a 54-year-old male being seen today for colonoscopy. Patient had a recent Cologuard test which was positive. This is his first colonoscopy. He does have a uncle that had colon cancer. He denies any GI symptoms HPI Narrative ALBA GARCIA, is a 54 M who presents [facility] Medical History Alcohol use CPAP (continuous positive airway pressure) dependence Non-smoker Positive colorectal cancer screening using Cologuard test Home Medications ?Medication ?Instructions ?Recorded ?Last Taken ?Type NK 01/30/24 Unknown History Allergy/AdvReac Type Severity Reaction Status Date / Time No Known Allergies Allergy Verified 02/12/24 06:40 Family History Uncle Colon cancer Surgical History Hx of vasectomy H/O umbilical hernia repair Social History Smoking Status: Never smoker alcohol intake: never substance use type: does not use ROS Constitutional Constitutional: Reports systems reviewed and no addt'l complaints, except as documented Eyes Eyes: Reports systems reviewed and no addt'l complaints, except as documented ENT HEENT: Reports systems reviewed and no addt'l complaints, except as documented Cardiovascular Cardiovascular: Reports systems reviewed and no addt'l complaints, except as documented Respiratory/Chest Respiratory/Chest: Reports systems reviewed and no addt'l complaints, except as documented Gastrointestinal Gastrointestinal: Reports systems reviewed and no addt'l complaints, except as documented Genitourinary Genitourinary: Reports systems reviewed and no addt'l complaints, except as documented Vital Signs Vital Signs Vital Signs: 02/12/24 06:41 02/12/24 06:41 02/12/24 07:11 Temperature 97 F L 97 F L Temperature Source Temporal Pulse Rate 71 71 Respiratory Rate 16 16 Respiratory Pattern Normal Blood Pressure 131/97 H 131/97 H Blood Pressure Mean 108 Blood Pressure Source Monitor Blood Pressure Position Semi-Fowlers Blood Pressure Location Right Arm Pulse Ox 99 99 Oxygen Delivery Method Room Air Weight Weight: 235 lb 14.314 oz Body Mass Index (BMI) 34.8 Assessment & Plan Assessment/Plan (1) Positive colorectal cancer screening using Cologuard test: PLAN: Plan The patient is a 54-year-old male who recently had a positive Cologuard test. He presents today for colonoscopy. We discussed the details of the planned procedure including risks benefits and alternatives. He wishes to proceed. Colonoscopy will begin momentarily. Charges/Coding Visit Charges Inpatient E&M: 94988 Init Hosp L1
--- NOTE | 2024-02-12 07:13 | PCM.PRE.AN2 ---
ASA Classification* ASA Classification ASA Classification: 2 Assessment & Plan Anesthesia* Anesthesia Assessment Anesthesia Assessment: Discussed sedation and/or anesthesia options, risks, benefits, and alternatives with patient/parents/legal guardian/POA. Questions invited. The patient/parents/legal guardian/POA seems to understand and agrees to proceed with anesthesia plan. Reviewed the physical assessment, medical history, allergy history and patient home medications list prior to surgery/procedure/anesthetic and documented any changes. Performed airway and anesthesia risk assessments. Anesthesia Type Anesthesia Type: MAC (SEE WRITTEN PRE ANESTHESIA RECORD FOR FULL ASSESSMENT) Anesthesia Focused Assessment* Temperature: 97 F Pulse Rate: 71 Blood Pressure: 131/97 Respiratory Rate: 16 Pulse Ox: 99 Airway Assessment Mouth opens: >3 cm Mallampati Score: II Focused Labs Anesthesia Preop lab: CBC CHEMISTRY COAG Pre-Assessment Diagnosis/Proposed Procedure Planned Operative Procedure(s): CSCOPE Anesthesia History Anesthesia History - folder hand: Anesthesia History - folder hand Hx Hospitalization No 02/08/24 15:23 Any Problems With Anesthesia No 02/08/24 15:23 Cholinesterase deficiency No 02/08/24 15:23 You/Your Family Experience No 02/08/24 15:23 fever (hyperthermia) with Relationship Recent Exposure to Contagious No 02/12/24 06:41 Disease Does patient have nerve No 02/08/24 15:23 stimulator Patient instructed to have device shut off --Does patient have Pacemaker No 02/12/24 06:41 or ICD? When Was Last Pacemaker Check QUESTION #4 FULL TEXT: You/Your Family Experience fever (hyperthermia) with Anesthesia Last Oral Intake Last Oral intake: Last Oral Intake NPO since Meds taken in AM with sips of water? Meds patient instructed to take am of surgery PONV PONV - folder hand: PONV - folder hand Female No 02/08/24 15:23 HX of Motion Sickness No 02/08/24 15:23 HX of N/V After Surgery No 02/08/24 15:23 Non-Smoker Yes 02/08/24 15:23 Duration of Surgery greater No 02/08/24 15:23 than 60 minutes Number of Risk Factors 1 02/08/24 15:23 PONV Score Low Risk 02/08/24 15:23 Height & Weight Height & Weight: Anesthesia: Height & Weight Height 5 ft 9 in 02/12/24 06:41 Weight: 107 kg 02/12/24 06:41 Body Mass Index (BMI) 34.8 02/12/24 06:41 Respiratory Assessment Respiratory Assessment - folder hand: Respiratory Tract Infection Hx - folder hand Hx Respiratory Tract Infection No 02/08/24 15:23 STOP Sleep Apnea STOP Sleep Apnea - folder hand: STOP Sleep Apnea - folder hand Hx Hypertension No 02/08/24 15:23 Hx Sleep Apnea Yes 02/08/24 15:23 CPAP Yes 02/08/24 15:23 BIPAP No 02/08/24 15:23 Do you snore loudly (louder No 02/08/24 15:23 than talking or can be heard Do you often feel tired/ No 02/08/24 15:23 fatigued/ sleepy during daytime? Has anyone observed you stop No 02/08/24 15:23 breathing during sleep? STOP Results Positive 02/08/24 15:23 QUESTION #5 FULL TEXT : Do you snore loudly (louder than talking or can be heard through closed doors)? Tobacco Use History Tobacco Use History - folder hand: Tobacco Use History - folder hand Tobacco Use Smoking Status Never smoker 02/08/24 15:23 Hx Tobacco Use No 02/08/24 15:23 Years Smoking Packs Smoked per Day Smoking Cessation Date was within the last 15 years Hx Smoking Cessation Date Hx Smoking Cessation Counseling Hematologic Medial History Hematologic Hx - folder hand: Hematologic Medical Hx - heel sander rubber Hx of Blood Transfusion No 02/08/24 15:23 Hx of Transfusion in last 3 No 02/08/24 15:23 Months Date of Last Transfusion (if within last 3 months) Ever experience any problems No 02/08/24 15:23 with transfusion(s)? Specify any problems Hx of Preganancy in last 3 N/A 02/08/24 15:23 Months Nurse Filling Out Transfusion DSCHRIBER 02/08/24 15:23 & Questions: Date: 02/08/24 02/08/24 15:23 Time: 15:24 02/08/24 15:23 Patient unable to answer at this time (ie. confused, unrespo /Reproduction History /Reproductive History - folder hand: /Reproductive Hx- folder hand Hx Now No 02/08/24 15:23 Gestational Age (in weeks): EDC: Hx Hx Para Hx Section SAB No 02/08/24 15:23 Active Medications Active Medications: Current Medications Generic Name Dose Route Start Last Admin Trade Name Freq PRN Reason Stop Dose Admin Sodium Chloride 10 - 40 ml 02/12/24 06:32 0.9% Saline Lock 10 Ml Syringe IV UD PRN SALINE FLUSH PFSH Medical History Alcohol use CPAP (continuous positive airway pressure) dependence Non-smoker Positive colorectal cancer screening using Cologuard test Home Medications ?Medication ?Instructions ?Recorded ?Last Taken ?Type NK 01/30/24 Unknown History Allergy/AdvReac Type Severity Reaction Status Date / Time No Known Allergies Allergy Verified 02/12/24 06:40 Family History Uncle Colon cancer Surgical History Hx of vasectomy H/O umbilical hernia repair Social History Smoking Status: Never smoker alcohol intake: never substance use type: does not use Review of Systems (Anesthesia) ROS Narrative System reviewed and no additional complaints, except as documented.
--- NOTE | 2024-02-12 07:30 | COLBX_PTH ---
PATHOLOGY RESULTS PATIENT: ALBA GARCIA LOC: EN U#:[id number] AGE/SX: 54/M ROOM: RE02/12/[address]: Dr. Juventino Mcnair MD : 1970 BED: DIS: 02/12/2024 SPEC #: [id number] RECD: 02/12/24 10:26 STATUS: YUE REKita #: [id number] SIRI: 02/12/24 07:[address]: Juventino Mcnair DEPT: SURGICAL PATHOLOGY RECD BY: Fsoter Cortez ENTERED: 02/12/24 11:21 SP TYPE: COLON BX OTHR DR: Dr. Doug Schmitz MD Tissues: Ascending colon Ascending colon Descending colon Sigmoid colon biopsy Procedures: Surgery Specimen Level IV HEADER OPERATION: Colonoscopy with polypectomy PRE-OP DIAGNOSIS: Positive colorectal cancer screening using Cologaurd test TISSUE SUBMITTED: A- Ascending colon polyp, B- Ascending colon polyp #2, C- Descending colon polypsx 2, D- Sigmoid colon polyp x2 MICROSCOPIC DIAGNOSIS A. Ascending colon polyp, polypectomy: Fragments of tubular adenoma. B. Ascending colon polyp #2, polypectomy: Fragments of tubulovillous adenoma. C. Descending colon polypx2, polypectomy: Fragments of tubular adenoma. D. Sigmoid colon polyp x2, polypectomy: Hyperplastic polyp x2. 02/13/2024 MICROSCOPIC DESCRIPTION Slides are reviewed. GROSS DESCRIPTION A. Received in fixative is one container labeled with the patient's name and designated Ascending colon polyp. The specimen consists of multiple irregular fragments of a corea-pink polyp measuring 0.7 x 0.5 x 0.3 cm. Also present in the container are multiple fragments of corea soft tissue measuring in aggregate 1.5 x 0.2 x 0.1cm. The specimen is totally submitted in one cassette. B. Received in fixative is one container labeled with the patient's name and designated Ascending colon polyp #2. The specimen consists of a corea-pink polyp measuring 1.7 x 1.5 x 1.2cm. The polyp is serially sectioned. Also present in the container are multiple fragments of corea soft tissue measuring in aggregate 2.5 x 1.5 x 0.2cm. The entire specimen is submitted in three cassettes. C. Received in fixative is one container labeled with the patient's name and designated Descending colon polyp x2. The specimen consists of multiple irregular fragments of light corea soft tissue that in aggregate measure 1.5 x 1.0 x 0.3 cm. The specimen is totally submitted in one cassette. D. Received in fixative is one container labeled with the patient's name and designated Sigmoid colon polyp x2. The specimen consists of two irregular fragments of light corea soft tissue that in aggregate measure 0.8 x 0.4 x 0.2 cm. The specimen is totally submitted in one cassette. [id number] 02/12/2024 TC:1 CPT:29738m6
--- NOTE | 2024-02-12 08:45 | PCM.POST.ANE ---
Anesthesia: Postop Eval I Current Vital Signs Temperature: 97.1 F Pulse Rate: 70 Blood Pressure: 110/67 Respiratory Rate: 16 Pulse Ox: 97 Oxygen Delivery Method: Room Air Assessment Airway patent: Yes Spontaneous unlabored respirations: Yes Mental status: Awake and Calm nausea: No Vomiting: No Anesthesia Complication: No Fluid Hydration Crystalloid volume administer (ml): 90 Total IV fluid infused: 90 Progress Note Anesthesia document: Postop Eval 1 completed: Yes
--- NOTE | 2024-02-12 08:48 | OP.COLON_ITS ---
Patient Name: Janna Armstrong Procedure Date: 02/12/2024 7:37 AM Date of : 1970 Age: 54 Procedure: Colonoscopy Indications: Positive Cologuard test Providers: Juventino Mcnair MD Referring MD: Doug Schmitz Medicines: Monitored Anesthesia Care Patient Profile: Refer to note in patient chart for documentation of history and physical. Last Colonoscopy: none. The patient's first colonoscopy is today. Complications: No immediate complications. Estimated blood loss: Minimal. Procedure: Pre-Anesthesia Assessment: - Prior to the procedure, a History and Physical was performed, and patient medications and allergies were reviewed. The patient's tolerance of previous anesthesia was also reviewed. The risks and benefits of the procedure and the sedation options and risks were discussed with the patient. All questions were answered, and informed consent was obtained. Prior Anticoagulants: The patient has taken no anticoagulant or antiplatelet agents. ASA Grade Assessment: II - A patient with mild systemic disease. After reviewing the risks and benefits, the patient was deemed in satisfactory condition to undergo the procedure. After I obtained informed consent, the scope was passed under direct vision. Throughout the procedure, the patient's blood pressure, pulse, and oxygen saturations were monitored continuously. The adult colonoscope was introduced through the anus and advanced to the cecum, identified by appendiceal orifice and ileocecal valve. The ileocecal valve, appendiceal orifice, and rectum were photographed. The entire colon was well visualized. The colonoscopy was performed without difficulty. The patient tolerated the procedure well. The quality of the bowel preparation was adequate. Moderate Sedation: See the other procedure note for documentation of moderate sedation with intraservice time. Scope In: 7:46:03 AM Scope Withdrawal Time 0 hours 40 minutes 42 seconds Scope Out: 8:31:36 AM Total Procedure Duration Time 0 hours 45 minutes 33 seconds Findings: The perianal and digital rectal examinations were normal. Two pedunculated polyps were found in the ascending colon. The polyps were 6 to 12 mm in size. These polyps were removed with a hot snare. Resection and retrieval were complete. Verification of patient identification for the specimen was done by the nurse using the patient's name, date and medical record number. Estimated blood loss was minimal. Two semi-pedunculated polyps were found in the descending colon. The polyps were 5 to 10 mm in size. These polyps were removed with a hot snare. Resection and retrieval were complete. Verification of patient identification for the specimen was done by the physician using the patient's name, date and medical record number. Estimated blood loss was minimal. Two semi-sessile polyps were found in the sigmoid colon. The polyps were 3 to 6 mm in size. These polyps were removed with a cold snare. Resection and retrieval were complete. Verification of patient identification for the specimen was done by the nurse using the patient's name, date and medical record number. Estimated blood loss was minimal. The exam was otherwise without abnormality on direct and retroflexion views. Impression: - Two 6 to 12 mm polyps in the ascending colon, removed with a hot snare. Resected and retrieved. - Two 5 to 10 mm polyps in the descending colon, removed with a hot snare. Resected and retrieved. - Two 3 to 6 mm polyps in the sigmoid colon, removed with a cold snare. Resected and retrieved. - The examination was otherwise normal on direct and retroflexion views. Recommendation: - Discharge patient to home (ambulatory). - High fiber diet indefinitely. - Await pathology results. - Repeat colonoscopy in 3 years for surveillance. - Return to my office PRN. - Continue present medications. Procedure Code(s): --- Professional --- 15800, Colonoscopy, flexible; with removal of tumor(s), polyp(s), or other lesion(s) by snare technique Diagnosis Code(s): --- Professional --- D12.2, Benign neoplasm of ascending colon D12.4, Benign neoplasm of descending colon R19.5, Other fecal abnormalities D12.5, Benign neoplasm of sigmoid colon CPT copyright 2021 [employer]. All rights reserved. The codes documented in this report are preliminary and upon chainstitch seat joiner review may be revised to meet current compliance requirements. Juventino Mcnair MD 02/12/2024 8:47:56 AM This report has been signed electronically. Number of Addenda: 0 Note Initiated On: 02/12/2024 7:37 AM
--- NOTE | 2024-02-12 08:48 | OP.CCLET_ITS ---
02/12/2024 Doug Schmitz Re : Colonoscopy procedure for Janna Hickssamuel Schmitz This procedure was performed on Monday, February 12, 2024. My impressions and recommendations are as follows: Impressions : - Two 6 to 12 mm polyps in the ascending colon, removed with a hot snare. Resected and retrieved. - Two 5 to 10 mm polyps in the descending colon, removed with a hot snare. Resected and retrieved. - Two 3 to 6 mm polyps in the sigmoid colon, removed with a cold snare. Resected and retrieved. - The examination was otherwise normal on direct and retroflexion views. Recommendations : - Discharge patient to home (ambulatory). - High fiber diet indefinitely. - Await pathology results. - Repeat colonoscopy in 3 years for surveillance. - Return to my office PRN. - Continue present medications. My findings are described in the full procedure note, which is enclosed. If I can be of further assistance, please feel free to contact me at . Sincerely, Juventino Mcnair MD 02/12/2024 8:47:56 AM This report has been signed electronically.
--- NOTE | 2024-02-12 09:15 | PCM.POSTANE2 ---
Anesthesia Postop Eval I Sum Postop Eval Completion status Anesthesia document: Postop Eval 1 completed: Yes Anesthesia Postop Eval I Summary Anesthesia Postop Eval I Summary: Anesthesia Postop Eval I: Assessment Summary Airway patent Yes 02/12/24 08:46 [email or web address] Spontaneous unlabored Yes 02/12/24 08:46 [email or web address] respirations Mental status Awake,Calm 02/12/24 08:46 [email or web address] nausea No 02/12/24 08:46 [email or web address] Vomiting No 02/12/24 08:46 [email or web address] Anesthesia Postop Eval I: Fluid Summary Crystalloid volume administer 90 02/12/24 08:46 [email or web address] (ml) Colloids volume administered ( ml) Blood Product volume administered (ml) Total IV fluid infused 90 02/12/24 08:46 [email or web address] Anesthesia Postop Eval I: Summary Notes Anesthesia Complication No 02/12/24 08:46 [email or web address] Anesthesia Complication Comment: Post-operative progress note Anesthesia: Postop Eval II Evaluation Mental status: Awake and Calm Pain Level: 0 nausea: No Vomiting: No Complications Anesthesia Complication: No
== END 2024-02-12 09:12 | disposition home or self-care (01) ==
LOC: EN 06:27 → AC 06:28
PROVIDERS: PCP Family Medicine; Referring Provider Family Medicine; Visit Provider Surgery
PROC: 0DJD8ZZ Inspection of Lower Intestinal Tract, Via Natural or Artificial Opening Endoscopic (ICD-10-PCS; CPT 45378; principal; 2024-02-12 07:25)
DX: D12.2 Benign neoplasm of ascending colon (principal); D12.4 Benign neoplasm of descending colon
CPT/HCPCS: 45385; 88305; A4216; J2405